=== PATIENT | female | born 1955 | race Caucasian/White ===

== ENCOUNTER 2017-09-05 08:45 | Inpatient (IN) | payer MEDICARE, OTHER ==
[2017-09-05 09:38] LABS: ADD MAN DIFF? NO
[2017-09-05 09:40] LABS: WHITE BLOOD COUNT 8.6 10^3/ul (4.8-10.8)
[2017-09-05 09:40] LABS: BASOPHILS % 0.4 % (0.0-2.0); EOSINOPHILS # 0.1 10^3/ul (0.0-0.5); EOSINOPHILS % 1.3 % (0.0-7.0); HEMATOCRIT 32.9 % (37.0-47.0); HEMOGLOBIN 10.2 g/dl (12.0-16.0); LYMPHOCYTES # 3.3 10^3/ul (0.8-2.9); LYMPHOCYTES % 38.1 % (15.0-51.0); MEAN CORPUSCULAR HEMOGLOBIN 25.5 pg (29.0-33.0); MEAN CORPUSCULAR VOLUME 82.3 fl (82.0-101.0); MEAN PLATELET VOLUME 9.3 fl (7.4-10.4); MONOCYTE # 0.7 10^3/ul (0.3-0.9); MONOCYTES % 8.4 % (0.0-11.0); NEUTROPHIL # 4.4 10^3/ul (1.6-7.5); NEUTROPHILS % 51.6 % (39.0-77.0); PLATELET COUNT 368 10^3/UL (140-415); RED CELL DISTRIBUTION WIDTH 16.3 % (11.5-14.5)
[2017-09-05 09:57] LABS: ALANINE AMINOTRANSFERASE 29 IU/L (13-69); ALBUMIN 3.5 g/dl (3.3-4.9); ALKALINE PHOSPHATASE 109 IU/L (42-121); ANION GAP 10 (8-16); ASPARTATE AMINO TRANSFERASE 12 IU/L (15-46); BILIRUBIN,INDIRECT 0.5 mg/dl (0-1.1); BILIRUBIN,TOTAL 0.5 mg/dl (0.2-1.3); BLOOD UREA NITROGEN 19 mg/dl (7-20); CALCIUM 8.6 mg/dl (8.4-10.2); CARBON DIOXIDE 29 mmol/L (21-31); CHLORIDE 109 mmol/L (97-110); CREATININE 0.74 mg/dl (0.44-1.00); GLUCOSE 94 mg/dl (70-220); POTASSIUM 3.8 mmol/L (3.5-5.1); SODIUM 144 mmol/L (135-144); TOTAL PROTEIN 6.4 g/dl (6.1-8.1)
[2017-09-05 10:12] LABS: TROPONIN-I < 0.012 ng/ml (0.000-0.120)
[2017-09-05 10:15] LABS: INR 0.99; PROTIME 13.2 Sec (11.9-14.9)
[2017-09-05 10:16] LABS: PARTIAL THROMBOPLASTIN TIME 27.3 Sec (25.0-35.0)
[2017-09-05] MEDS ORDERED: ONDANSETRON 4 MG INJ IV ×2 (11:00→17:30)
[2017-09-05] MEDS ORDERED: ACETAMINOPHEN 325 MG TAB PO (11:00)
[2017-09-05] MEDS: PANTOPRAZOLE 40 MG INJ IV (11:02)
[2017-09-05] MEDS ORDERED: hydrALAzine 20 MG INJ IV (17:30)
[2017-09-05] MEDS ORDERED: NACL 0.9% 3 ML SYG IV (17:30)
[2017-09-05] MEDS ORDERED: morphine 2 MG INJ IV (17:30)
[2017-09-05] MEDS: BISACODYL (EC) 5 MG TAB PO (18:40)
[2017-09-05] MEDS: 1/2 NS + KCL 20 MEQ 1,000 ML IV (18:40)
[2017-09-05] MEDS: POLYETHYLENE GLYCOL 3350 119 GM POWDER PO (18:40)
[2017-09-05] MEDS: MAGNESIUM CITRATE 300 ML BTL PO (22:39)
[2017-09-05] MEDS: ALPRAZOLAM 0.5 MG TAB PO (22:46)
[2017-09-05 23:48] LABS: HEMATOCRIT 32.8 % (37.0-47.0)
[2017-09-06] MEDS: PRAMOXINE/HC 10 GM RECT FOAM PR ×4 (01:41→20:42)
[2017-09-06] MEDS ORDERED: POLYETHYLENE GLYCOL 17 GM PACKET (05:04)
[2017-09-06] MEDS: PANTOPRAZOLE 40 MG INJ IV (05:13)
[2017-09-06 06:02] LABS: ADD MAN DIFF? NO
[2017-09-06 06:08] LABS: BASOPHILS % 0.4 % (0.0-2.0); EOSINOPHILS # 0.1 10^3/ul (0.0-0.5); EOSINOPHILS % 1.4 % (0.0-7.0); HEMOGLOBIN 9.3 g/dl (12.0-16.0); LYMPHOCYTES # 3.1 10^3/ul (0.8-2.9); LYMPHOCYTES % 44.9 % (15.0-51.0); MEAN CORPUSCULAR HEMOGLOBIN 25.2 pg (29.0-33.0); MEAN PLATELET VOLUME 9.9 fl (7.4-10.4); MONOCYTE # 0.5 10^3/ul (0.3-0.9); MONOCYTES % 7.5 % (0.0-11.0); NEUTROPHIL # 3.2 10^3/ul (1.6-7.5); NEUTROPHILS % 45.5 % (39.0-77.0); PLATELET COUNT 357 10^3/UL (140-415); RED BLOOD COUNT 3.69 10^6/ul (4.20-5.40); RED CELL DISTRIBUTION WIDTH 16.7 % (11.5-14.5)
[2017-09-06] MEDS: POLYETHYLENE GLYCOL 3350 119 GM POWDER PO (06:38)
[2017-09-06 06:39] LABS: ANION GAP 9 (8-16); BLOOD UREA NITROGEN 11 mg/dl (7-20); CALCIUM 8.5 mg/dl (8.4-10.2); CARBON DIOXIDE 32 mmol/L (21-31); CHLORIDE 111 mmol/L (97-110); CREATININE 0.68 mg/dl (0.44-1.00); GLUCOSE 98 mg/dl (70-220); MAGNESIUM 2.6 mg/dl (1.7-2.5); PHOSPHORUS 3.5 mg/dl (2.5-4.9); POTASSIUM 4.2 mmol/L (3.5-5.1); SODIUM 148 mmol/L (135-144)
[2017-09-06 07:16] LABS: HEMOGLOBIN A1C 5.6 % (0-5.9)
[2017-09-06] MEDS: BISACODYL (EC) 5 MG TAB PO (08:41)
[2017-09-06] MEDS: 1/2 NS + KCL 20 MEQ 1,000 ML IV ×2 (08:43→21:46)
[2017-09-06 14:22] LABS: HEMATOCRIT 31.1 % (37.0-47.0); HEMOGLOBIN 9.3 g/dl (12.0-16.0)
[2017-09-06] MEDS ORDERED: FENTAnyl 50 MCG/ML VIAL (17:39)
[2017-09-06] MEDS ORDERED: MIDAZOLAM 1 MG/ML 2 ML INJ (17:39)
[2017-09-06] MEDS ORDERED: PROPOFOL 20 ML (17:39)
[2017-09-06] MEDS ORDERED: ETOMIDATE 20 MG INJ (17:40)
[2017-09-06] MEDS ORDERED: EPHEDrine SULFATE 50 MG/5 ML SYG (18:02)
[2017-09-06] MEDS: ALPRAZOLAM 0.5 MG TAB PO (20:42)
[2017-09-07] MEDS: PANTOPRAZOLE 40 MG INJ IV (05:43)
[2017-09-07] MEDS: 1/2 NS + KCL 20 MEQ 1,000 ML IV (05:51)
[2017-09-07] MEDS ORDERED: BARIUM SULF 2% 450 ML BTL (BERRY SMOOTHIE) PO (08:30)
[2017-09-07] MEDS: PRAMOXINE/HC 10 GM RECT FOAM PR ×3 (10:30→21:18)
[2017-09-07] MEDS: IOHEXOL 14.3 MG(I)/ML (ADULT) BTL PO (13:07)
[2017-09-07] MEDS ORDERED: IOHEXOL 300MG/ML 150 ML BTL (15:23)
[2017-09-07] MEDS ORDERED: SOD CHLORIDE 0.9% 100 ML (15:23)
[2017-09-07] MEDS: NICOTINE (21 MG/24 HR) PATCH TRANSDERM (18:07)
[2017-09-07] MEDS: ALPRAZOLAM 0.5 MG TAB PO (21:18)
[2017-09-08] MEDS: 1/2 NS + KCL 20 MEQ 1,000 ML IV (00:48)
[2017-09-08] MEDS: ACETAMINOPHEN 1000MG/100ML IV 100 ML IVPB (05:16)
[2017-09-08] MEDS: PANTOPRAZOLE 40 MG INJ IV (05:16)
[2017-09-08] MEDS: NICOTINE (21 MG/24 HR) PATCH TRANSDERM (09:33)
[2017-09-08] MEDS: PRAMOXINE/HC 10 GM RECT FOAM PR ×3 (09:35→22:03)
[2017-09-08] MEDS: ATORVASTATIN 40 MG TAB PO (22:02)
[2017-09-08] MEDS: SALMETEROL/FLUTICASONE 250/50 INHA INH (22:02)
[2017-09-08] MEDS: ALPRAZOLAM 0.5 MG TAB PO (22:02)
[2017-09-09] MEDS: LEVOTHYROXINE 100 MCG TAB PO (06:25)
[2017-09-09] MEDS: SALMETEROL/FLUTICASONE 250/50 INHA INH ×2 (08:58→21:00)
[2017-09-09] MEDS: SERTRALINE 100 MG TAB PO (08:58)
[2017-09-09] MEDS: NICOTINE (21 MG/24 HR) PATCH TRANSDERM ×2 (08:59→22:37)
[2017-09-09] MEDS: PRAMOXINE/HC 10 GM RECT FOAM PR ×3 (09:00→22:39)
[2017-09-09 16:07] LABS: IRON 27 ug/dl (35-150)
[2017-09-09 16:17] LABS: % IRON SATURATION 6 % SAT (22-52); TOTAL IRON BINDING CAPACITY 464 ug/dl (241-421)
[2017-09-09 16:38] LABS: FERRITIN 7.8 ng/ml (11.1-264.0)
[2017-09-09] MEDS: ATORVASTATIN 40 MG TAB PO (22:38)
[2017-09-09] MEDS: ISOSORBIDE DINITRATE 20 MG TAB PO (22:38)
[2017-09-09] MEDS: ALPRAZOLAM 0.5 MG TAB PO (22:39)
[2017-09-10] MEDS: LEVOTHYROXINE 100 MCG TAB PO (06:33)
[2017-09-10 06:53] LABS: ADD MAN DIFF? NO
[2017-09-10 07:01] LABS: WHITE BLOOD COUNT 7.4 10^3/ul (4.8-10.8)
[2017-09-10 07:01] LABS: BASOPHILS % 0.4 % (0.0-2.0); EOSINOPHILS # 0.1 10^3/ul (0.0-0.5); EOSINOPHILS % 1.3 % (0.0-7.0); HEMATOCRIT 30.2 % (37.0-47.0); HEMOGLOBIN 8.9 g/dl (12.0-16.0); LYMPHOCYTES % 40.1 % (15.0-51.0); MEAN CORPUSCULAR HEMOGLOBIN 24.5 pg (29.0-33.0); MEAN CORPUSCULAR HGB CONC 29.5 g/dl (32.0-37.0); MEAN CORPUSCULAR VOLUME 83.2 fl (82.0-101.0); MEAN PLATELET VOLUME 10.1 fl (7.4-10.4); MONOCYTE # 0.6 10^3/ul (0.3-0.9); MONOCYTES % 7.4 % (0.0-11.0); NEUTROPHIL # 3.8 10^3/ul (1.6-7.5); NEUTROPHILS % 50.7 % (39.0-77.0); PLATELET COUNT 383 10^3/UL (140-415); RED BLOOD COUNT 3.63 10^6/ul (4.20-5.40); RED CELL DISTRIBUTION WIDTH 16.1 % (11.5-14.5)
[2017-09-10 07:29] LABS: ANION GAP 13 (8-16); BLOOD UREA NITROGEN 21 mg/dl (7-20); CALCIUM 8.5 mg/dl (8.4-10.2); CARBON DIOXIDE 27 mmol/L (21-31); CHLORIDE 113 mmol/L (97-110); CREATININE 0.67 mg/dl (0.44-1.00); GLUCOSE 96 mg/dl (70-220); SODIUM 149 mmol/L (135-144)
[2017-09-10] MEDS: SALMETEROL/FLUTICASONE 250/50 INHA INH ×2 (09:00→21:00)
[2017-09-10] MEDS: ISOSORBIDE DINITRATE 20 MG TAB PO ×3 (09:03→22:22)
[2017-09-10] MEDS: SPIRONOLACTONE 25 MG TAB PO (09:03)
[2017-09-10] MEDS: SERTRALINE 100 MG TAB PO (09:03)
[2017-09-10] MEDS: NICOTINE (21 MG/24 HR) PATCH TRANSDERM (09:03)
[2017-09-10] MEDS: PRAMOXINE/HC 10 GM RECT FOAM PR ×3 (09:09→22:22)
[2017-09-10] MEDS: morphine LIQ (10 MG/5 ML) CUP PO (11:33)
[2017-09-10] MEDS: PEG/ELECTROLYTES 4L BTL PO (16:07)
[2017-09-10 17:47] LABS: INR 0.94; PROTIME 12.7 Sec (11.9-14.9)
[2017-09-10] MEDS: ATORVASTATIN 40 MG TAB PO (22:22)
[2017-09-10] MEDS: ALPRAZOLAM 0.5 MG TAB PO (22:22)
[2017-09-11] MEDS: BUPIVACAINE 0.5%/EPI (SDV) 30 ML INJ
[2017-09-11 06:15] LABS: ADD MAN DIFF? NO
[2017-09-11 06:18] LABS: BASOPHILS % 0.5 % (0.0-2.0); EOSINOPHILS # 0.1 10^3/ul (0.0-0.5); EOSINOPHILS % 1.6 % (0.0-7.0); HEMATOCRIT 29.3 % (37.0-47.0); HEMOGLOBIN 8.8 g/dl (12.0-16.0); LYMPHOCYTES % 41.3 % (15.0-51.0); MEAN CORPUSCULAR HEMOGLOBIN 25.1 pg (29.0-33.0); MEAN CORPUSCULAR VOLUME 83.5 fl (82.0-101.0); MONOCYTE # 0.6 10^3/ul (0.3-0.9); MONOCYTES % 7.8 % (0.0-11.0); NEUTROPHIL # 3.5 10^3/ul (1.6-7.5); NEUTROPHILS % 48.7 % (39.0-77.0); PLATELET COUNT 407 10^3/UL (140-415); RED BLOOD COUNT 3.51 10^6/ul (4.20-5.40); RED CELL DISTRIBUTION WIDTH 16.1 % (11.5-14.5)
[2017-09-11 06:18] LABS: WHITE BLOOD COUNT 7.3 10^3/ul (4.8-10.8)
[2017-09-11 06:54] LABS: ANION GAP 13 (8-16); BLOOD UREA NITROGEN 15 mg/dl (7-20); CALCIUM 8.2 mg/dl (8.4-10.2); CARBON DIOXIDE 28 mmol/L (21-31); CHLORIDE 111 mmol/L (97-110); CREATININE 0.65 mg/dl (0.44-1.00); GLUCOSE 87 mg/dl (70-220); POTASSIUM 4.1 mmol/L (3.5-5.1); SODIUM 148 mmol/L (135-144)
[2017-09-11] MEDS ORDERED: DEXAMETHASONE 4 MG/ML 1 ML INJ (07:00)
[2017-09-11] MEDS ORDERED: CEFAZOLIN 1 GM INJ (07:00)
[2017-09-11] MEDS ORDERED: metroNIDAZOLE 500 MG/100 ML NS IVPB (07:00)
[2017-09-11] MEDS ORDERED: ONDANSETRON 4 MG INJ (07:00)
[2017-09-11] MEDS ORDERED: ETOMIDATE 20 MG INJ (07:00)
[2017-09-11] MEDS: PRAMOXINE/HC 10 GM RECT FOAM PR ×3 (09:00→20:53)
[2017-09-11] MEDS: SALMETEROL/FLUTICASONE 250/50 INHA INH ×2 (09:00→21:54)
[2017-09-11] MEDS: LEVOTHYROXINE 100 MCG TAB PO (10:03)
[2017-09-11] MEDS: SERTRALINE 100 MG TAB PO (10:04)
[2017-09-11] MEDS: SPIRONOLACTONE 25 MG TAB PO (10:04)
[2017-09-11] MEDS: NICOTINE (21 MG/24 HR) PATCH TRANSDERM (10:04)
[2017-09-11] MEDS: ISOSORBIDE DINITRATE 20 MG TAB PO ×3 (10:04→20:52)
[2017-09-11] MEDS ORDERED: FENTAnyl 50 MCG/ML VIAL ×3 (13:17→14:45)
[2017-09-11] MEDS ORDERED: MIDAZOLAM 1 MG/ML 2 ML INJ ×2 (13:17→14:08)
[2017-09-11] MEDS ORDERED: PROPOFOL 20 ML (13:19)
[2017-09-11] MEDS ORDERED: SUCCINYLCHOLINE CHLORIDE 100 MG/5 ML SYG IV (13:20)
[2017-09-11] MEDS ORDERED: ROCURONIUM 50 MG INJ (13:20)
[2017-09-11] MEDS ORDERED: EPHEDrine SULFATE 50 MG/5 ML SYG (13:21)
[2017-09-11] MEDS ORDERED: ACETAMINOPHEN 1000MG/100ML IV 100 ML (13:22)
[2017-09-11] MEDS ORDERED: LIDOCAINE 1% (MPF) 30 ML INJ (14:23)
[2017-09-11] MEDS ORDERED: METOPROLOL 5 MG INJ (14:23)
[2017-09-11] MEDS ORDERED: hydrALAzine 20 MG INJ (14:25)
[2017-09-11] MEDS ORDERED: HYDROmorphONE 2 MG/ML SYG (14:45)
[2017-09-11 16:27] LABS: IMMEDIATE SPIN CROSSMATCH 1 2
[2017-09-11] MEDS ORDERED: METOCLOPRAMIDE 10 MG INJ (17:45)
[2017-09-11] MEDS ORDERED: SUGAMMADEX SODIUM 200 MG/2 ML VIAL IV (17:45)
[2017-09-11] MEDS ORDERED: DIPHENHYDRAMINE 50 MG INJ IV (18:30)
[2017-09-11] MEDS ORDERED: ONDANSETRON 4 MG INJ IV (18:30)
[2017-09-11] MEDS ORDERED: HYDROmorphONE 0.5 MG/0.5 ML SYG IV (18:30)
[2017-09-11] MEDS ORDERED: hydrALAzine 20 MG INJ IV (18:30)
[2017-09-11] MEDS ORDERED: KETOROLAC 30 MG INJ IV (18:30)
[2017-09-11] MEDS ORDERED: FENTAnyl 50 MCG/ML VIAL IV ×2 (18:30)
[2017-09-11] MEDS ORDERED: MEPERIDINE 25 MG INJ IV (18:30)
[2017-09-11] MEDS ORDERED: CEFAZOLIN 3 GM in SOD CHLORIDE 0.9% 100 ML IVPB (18:30)
[2017-09-11] MEDS ORDERED: HYDROCODONE/APAP (5/325) TAB PO (18:30)
[2017-09-11] MEDS ORDERED: HYDROmorphONE (0.2 MG/ML) 10ML SYG IV ×2 (18:30)
[2017-09-11] MEDS: IPRATROPIUM (NEB) 0.5 MG/2.5 ML AMP HHN (18:34)
[2017-09-11 18:55] LABS: ADD UMIC YES; UR ASCORBIC ACID NEGATIVE (NEGATIVE); UR BILIRUBIN (Dip) NEGATIVE (NEGATIVE); UR BLOOD (Dip) 1+ mg/dL (NEGATIVE); UR CLARITY CLEAR (CLEAR); UR COLOR YELLOW (YELLOW); UR GLUCOSE (Dip) NEGATIVE (NEGATIVE); UR KETONES (Dip) NEGATIVE (NEGATIVE); UR LEUKOCYTE ESTERASE (Dip) NEGATIVE Leu/ul (NEGATIVE); UR MUCUS FEW /HPF (NONE SEEN); UR NITRITE (Dip) NEGATIVE (NEGATIVE); UR RBC 14 /HPF (0-5); UR SPECIFIC GRAVITY (Dip) 1.016 (1.003-1.030); UR TOTAL PROTEIN (Dip) NEGATIVE (NEGATIVE); UR UROBILINOGEN (Dip) NEGATIVE (NEGATIVE); UR WBC 2 /HPF (0-5)
[2017-09-11] MEDS: HYDROmorphONE (0.2 MG/ML) 10ML SYG IV (19:05)
[2017-09-11] MEDS: SOD FERRIC GLUC COMPLX 125 MG in SOD CHLORIDE 0.9% 100 ML IVPB (20:30)
[2017-09-11] MEDS: ATORVASTATIN 40 MG TAB PO (20:52)
[2017-09-11] MEDS: ALPRAZOLAM 0.5 MG TAB PO (20:53)
[2017-09-11] MEDS: CEFAZOLIN 2 GM/50 ML (PMX) 50 ML IVPB (21:54)
[2017-09-11] MEDS: metroNIDAZOLE 500 MG/NS (PMX) 100 ML IVPB (22:43)
[2017-09-12] MEDS: DEXTROSE 5%-0.45% NACL 1,000 ML IV ×2 (00:01→21:53)
[2017-09-12] MEDS: ACETAMINOPHEN 1000MG/100ML IV 100 ML IVPB ×5 (00:01→23:26)
[2017-09-12] MEDS: ALBUTEROL/IPRATROPIUM (NEB) 3 ML AMP HHN (02:08)
[2017-09-12] MEDS: CEFAZOLIN 2 GM/50 ML (PMX) 50 ML IVPB (04:55)
[2017-09-12] MEDS: metroNIDAZOLE 500 MG/NS (PMX) 100 ML IVPB ×2 (05:43→10:31)
[2017-09-12 06:09] LABS: HEMATOCRIT 33.6 % (37.0-47.0); HEMOGLOBIN 10.3 g/dl (12.0-16.0); MEAN CORPUSCULAR HEMOGLOBIN 25.6 pg (29.0-33.0); MEAN CORPUSCULAR HGB CONC 30.7 g/dl (32.0-37.0); MEAN CORPUSCULAR VOLUME 83.6 fl (82.0-101.0); MEAN PLATELET VOLUME 9.9 fl (7.4-10.4); PLATELET COUNT 366 10^3/UL (140-415); RED BLOOD COUNT 4.02 10^6/ul (4.20-5.40); RED CELL DISTRIBUTION WIDTH 15.9 % (11.5-14.5)
[2017-09-12 06:09] LABS: WHITE BLOOD COUNT 16.7 10^3/ul (4.8-10.8)
[2017-09-12 06:20] LABS: ADD MAN DIFF? YES; POSITIVE DIFF @See below
[2017-09-12 06:34] LABS: ANION GAP 11 (8-16); BLOOD UREA NITROGEN 11 mg/dl (7-20); CALCIUM 8.4 mg/dl (8.4-10.2); CARBON DIOXIDE 27 mmol/L (21-31); CHLORIDE 112 mmol/L (97-110); CREATININE 0.68 mg/dl (0.44-1.00); GLUCOSE 146 mg/dl (70-220); POTASSIUM 3.7 mmol/L (3.5-5.1); SODIUM 146 mmol/L (135-144)
[2017-09-12 07:15] LABS: ANISOCYTOSIS 2+ (0-0); BAND NEUTROPHILS #M 1.6 10^3/ul (0.0-0.6); BAND NEUTROPHILS % (M) 10 % (0-4); GIANT THROMBO% (M) 1 % (0-0); HYPOCHROMASIA 1+ (0-0); LYMPHOCYTES #M 1.1 10^3/ul (0.8-2.9); LYMPHOCYTES % (M) 7 % (15-51); MICROCYTOSIS 2+ (0-0); MONOCYTE #M 0.5 10^3/ul (0.3-0.9); MONOCYTES % (M) 3 % (0-11); PLATELET ESTIMATE NORMAL; POLYCHROMASIA 1+ (0-0); SEG NEUT #M 13.6 10^3/ul (1.6-7.5); SEGMENTED NEUTROPHILS (M) % 80 % (39-77); SMUDGE%M 4 % (0-0)
[2017-09-12] MEDS: morphine LIQ (10 MG/5 ML) CUP PO ×2 (08:00→15:02)
[2017-09-12] MEDS: LEVOTHYROXINE 100 MCG TAB PO (08:01)
[2017-09-12] MEDS: ISOSORBIDE DINITRATE 20 MG TAB PO ×3 (08:01→21:52)
[2017-09-12] MEDS: NICOTINE (21 MG/24 HR) PATCH TRANSDERM (08:02)
[2017-09-12] MEDS: SERTRALINE 100 MG TAB PO (08:02)
[2017-09-12] MEDS: PRAMOXINE/HC 10 GM RECT FOAM PR ×3 (08:03→21:00)
[2017-09-12] MEDS: SALMETEROL/FLUTICASONE 250/50 INHA INH ×2 (08:05→21:00)
[2017-09-12] MEDS: SPIRONOLACTONE 25 MG TAB PO (08:06)
[2017-09-12] MEDS: CEFEPIME 1GM/50 ML (PMX) 50 ML IVPB ×2 (12:54→22:06)
[2017-09-12] MEDS: LEVOFLOXACIN 500MG/D5W (PMX) 100 ML IVPB (13:35)
[2017-09-12 16:10] LABS: TROPONIN-I < 0.012 ng/ml (0.000-0.120)
[2017-09-12] MEDS: SOD FERRIC GLUC COMPLX 125 MG in SOD CHLORIDE 0.9% 100 ML IVPB (16:44)
[2017-09-12] MEDS: ALPRAZOLAM 0.5 MG TAB PO (21:52)
[2017-09-12] MEDS: ATORVASTATIN 40 MG TAB PO (21:52)
[2017-09-13] MEDS: ALTEPLASE (CATHFLO) 2 MG INJ CATHETER ×2 (03:44→11:39)
[2017-09-13] MEDS: ACETAMINOPHEN 1000MG/100ML IV 100 ML IVPB ×4 (05:13→23:01)
[2017-09-13] MEDS: DEXTROSE 5%-0.45% NACL 1,000 ML IV (06:02)
[2017-09-13] MEDS: LEVOTHYROXINE 100 MCG TAB PO (06:02)
[2017-09-13 06:51] LABS: ADD MAN DIFF? NO; BASOPHILS % 0.1 % (0.0-2.0); HEMATOCRIT 29.6 % (37.0-47.0); HEMOGLOBIN 9.1 g/dl (12.0-16.0); LYMPHOCYTES # 1.6 10^3/ul (0.8-2.9); LYMPHOCYTES % 13.2 % (15.0-51.0); MEAN CORPUSCULAR HEMOGLOBIN 25.4 pg (29.0-33.0); MEAN CORPUSCULAR HGB CONC 30.7 g/dl (32.0-37.0); MEAN CORPUSCULAR VOLUME 82.7 fl (82.0-101.0); MEAN PLATELET VOLUME 10.2 fl (7.4-10.4); MONOCYTE # 0.8 10^3/ul (0.3-0.9); MONOCYTES % 6.5 % (0.0-11.0); NEUTROPHILS % 79.7 % (39.0-77.0); PLATELET COUNT 338 10^3/UL (140-415); RED BLOOD COUNT 3.58 10^6/ul (4.20-5.40); RED CELL DISTRIBUTION WIDTH 16.2 % (11.5-14.5)
[2017-09-13 06:51] LABS: WHITE BLOOD COUNT 12.5 10^3/ul (4.8-10.8)
[2017-09-13 07:32] LABS: ANION GAP 9 (8-16); BLOOD UREA NITROGEN 9 mg/dl (7-20); CALCIUM 8.4 mg/dl (8.4-10.2); CARBON DIOXIDE 27 mmol/L (21-31); CHLORIDE 112 mmol/L (97-110); CREATININE 0.62 mg/dl (0.44-1.00); GLUCOSE 110 mg/dl (70-220); POTASSIUM 3.4 mmol/L (3.5-5.1); SODIUM 145 mmol/L (135-144)
[2017-09-13] MEDS: PRAMOXINE/HC 10 GM RECT FOAM PR ×3 (09:00→21:00)
[2017-09-13] MEDS: SPIRONOLACTONE 25 MG TAB PO (09:08)
[2017-09-13] MEDS: CEFEPIME 1GM/50 ML (PMX) 50 ML IVPB ×2 (09:08→20:16)
[2017-09-13] MEDS: SALMETEROL/FLUTICASONE 250/50 INHA INH ×2 (09:08→20:16)
[2017-09-13] MEDS: SERTRALINE 100 MG TAB PO (09:08)
[2017-09-13] MEDS: ISOSORBIDE DINITRATE 20 MG TAB PO ×3 (09:08→20:17)
[2017-09-13] MEDS: NICOTINE (21 MG/24 HR) PATCH TRANSDERM (09:08)
[2017-09-13] MEDS: LEVOFLOXACIN 500MG/D5W (PMX) 100 ML IVPB (11:39)
[2017-09-13] MEDS: morphine LIQ (10 MG/5 ML) CUP PO (11:40)
[2017-09-13] MEDS: POTASSIUM CHLORIDE (SR) 20 MEQ TAB PO (15:23)
[2017-09-13] MEDS: SOD FERRIC GLUC COMPLX 125 MG in SOD CHLORIDE 0.9% 100 ML IVPB (17:38)
[2017-09-13] MEDS: ALPRAZOLAM 0.5 MG TAB PO (20:16)
[2017-09-13] MEDS: ATORVASTATIN 40 MG TAB PO (20:17)
[2017-09-14] MEDS: ACETAMINOPHEN 1000MG/100ML IV 100 ML IVPB ×4 (05:36→23:21)
[2017-09-14 06:04] LABS: ADD MAN DIFF? NO
[2017-09-14 06:17] LABS: WHITE BLOOD COUNT 11.8 10^3/ul (4.8-10.8)
[2017-09-14 06:17] LABS: BASOPHILS % 0.2 % (0.0-2.0); HEMATOCRIT 30.9 % (37.0-47.0); HEMOGLOBIN 9.5 g/dl (12.0-16.0); LYMPHOCYTES # 1.7 10^3/ul (0.8-2.9); LYMPHOCYTES % 14.6 % (15.0-51.0); MEAN CORPUSCULAR HEMOGLOBIN 25.9 pg (29.0-33.0); MEAN CORPUSCULAR HGB CONC 30.7 g/dl (32.0-37.0); MEAN CORPUSCULAR VOLUME 84.2 fl (82.0-101.0); MEAN PLATELET VOLUME 10.2 fl (7.4-10.4); MONOCYTE # 0.9 10^3/ul (0.3-0.9); MONOCYTES % 7.4 % (0.0-11.0); NEUTROPHIL # 9.1 10^3/ul (1.6-7.5); NEUTROPHILS % 77.3 % (39.0-77.0); PLATELET COUNT 348 10^3/UL (140-415); RED BLOOD COUNT 3.67 10^6/ul (4.20-5.40); RED CELL DISTRIBUTION WIDTH 16.6 % (11.5-14.5)
[2017-09-14 06:34] LABS: ANION GAP 12 (8-16); BLOOD UREA NITROGEN 6 mg/dl (7-20); CALCIUM 8.7 mg/dl (8.4-10.2); CARBON DIOXIDE 26 mmol/L (21-31); CHLORIDE 114 mmol/L (97-110); CREATININE 0.56 mg/dl (0.44-1.00); GLUCOSE 124 mg/dl (70-220); SODIUM 148 mmol/L (135-144)
[2017-09-14] MEDS: ALTEPLASE (CATHFLO) 2 MG INJ CATHETER ×2 (06:37)
[2017-09-14] MEDS: LEVOTHYROXINE 100 MCG TAB PO (06:45)
[2017-09-14] MEDS: PRAMOXINE/HC 10 GM RECT FOAM PR ×3 (09:20→21:00)
[2017-09-14] MEDS: SERTRALINE 100 MG TAB PO (09:21)
[2017-09-14] MEDS: SPIRONOLACTONE 25 MG TAB PO (09:21)
[2017-09-14] MEDS: SALMETEROL/FLUTICASONE 250/50 INHA INH ×2 (09:21→21:00)
[2017-09-14] MEDS: NICOTINE (21 MG/24 HR) PATCH TRANSDERM (09:22)
[2017-09-14] MEDS: CEFEPIME 1GM/50 ML (PMX) 50 ML IVPB ×2 (09:25→21:27)
[2017-09-14] MEDS: ISOSORBIDE DINITRATE 20 MG TAB PO ×3 (09:26→21:27)
[2017-09-14] MEDS: DEXTROSE 5%-0.45% NACL 1,000 ML IV (10:44)
[2017-09-14] MEDS: LEVOFLOXACIN 500MG/D5W (PMX) 100 ML IVPB (12:17)
[2017-09-14] MEDS: DEXTROSE 5% 1,000 ML IV (15:09)
[2017-09-14] MEDS: SOD FERRIC GLUC COMPLX 125 MG in SOD CHLORIDE 0.9% 100 ML IVPB (16:36)
[2017-09-14] MEDS: ATORVASTATIN 40 MG TAB PO (21:27)
[2017-09-14] MEDS: ALPRAZOLAM 0.5 MG TAB PO (21:27)
[2017-09-15] MEDS: ACETAMINOPHEN 1000MG/100ML IV 100 ML IVPB ×4 (05:43→23:15)
[2017-09-15] MEDS: DEXTROSE 5% 1,000 ML IV (05:46)
[2017-09-15] MEDS: LEVOTHYROXINE 100 MCG TAB PO (06:12)
[2017-09-15 06:25] LABS: ADD MAN DIFF? NO
[2017-09-15 06:30] LABS: BASOPHILS % 0.2 % (0.0-2.0); EOSINOPHILS % 0.2 % (0.0-7.0); HEMATOCRIT 30.7 % (37.0-47.0); HEMOGLOBIN 9.4 g/dl (12.0-16.0); LYMPHOCYTES # 2.1 10^3/ul (0.8-2.9); MEAN CORPUSCULAR HEMOGLOBIN 25.7 pg (29.0-33.0); MEAN CORPUSCULAR HGB CONC 30.6 g/dl (32.0-37.0); MEAN CORPUSCULAR VOLUME 83.9 fl (82.0-101.0); MEAN PLATELET VOLUME 10.2 fl (7.4-10.4); MONOCYTE # 0.7 10^3/ul (0.3-0.9); MONOCYTES % 7.8 % (0.0-11.0); NEUTROPHIL # 6.5 10^3/ul (1.6-7.5); NEUTROPHILS % 69.1 % (39.0-77.0); PLATELET COUNT 362 10^3/UL (140-415); RED BLOOD COUNT 3.66 10^6/ul (4.20-5.40); RED CELL DISTRIBUTION WIDTH 16.7 % (11.5-14.5)
[2017-09-15 06:30] LABS: WHITE BLOOD COUNT 9.5 10^3/ul (4.8-10.8)
[2017-09-15 07:18] LABS: MAGNESIUM 2.1 mg/dl (1.7-2.5)
[2017-09-15 07:18] LABS: PHOSPHORUS 3.1 mg/dl (2.5-4.9)
[2017-09-15 07:30] LABS: ANION GAP 10 (8-16); BLOOD UREA NITROGEN 5 mg/dl (7-20); CALCIUM 8.7 mg/dl (8.4-10.2); CARBON DIOXIDE 29 mmol/L (21-31); CHLORIDE 114 mmol/L (97-110); CREATININE 0.57 mg/dl (0.44-1.00); GLUCOSE 116 mg/dl (70-220); POTASSIUM 3.3 mmol/L (3.5-5.1); SODIUM 150 mmol/L (135-144)
[2017-09-15] MEDS: PRAMOXINE/HC 10 GM RECT FOAM PR ×3 (09:00→21:00)
[2017-09-15] MEDS: SALMETEROL/FLUTICASONE 250/50 INHA INH ×2 (09:00→21:00)
[2017-09-15] MEDS: CEFEPIME 1GM/50 ML (PMX) 50 ML IVPB ×2 (11:22→22:01)
[2017-09-15] MEDS: SPIRONOLACTONE 25 MG TAB PO (11:23)
[2017-09-15] MEDS: SERTRALINE 100 MG TAB PO (11:23)
[2017-09-15] MEDS: NICOTINE (21 MG/24 HR) PATCH TRANSDERM (11:23)
[2017-09-15] MEDS: ISOSORBIDE DINITRATE 20 MG TAB PO ×3 (11:24→21:14)
[2017-09-15] MEDS: LEVOFLOXACIN 500MG/D5W (PMX) 100 ML IVPB (13:18)
[2017-09-15] MEDS: POTASSIUM CHLORIDE (SR) 20 MEQ TAB PO (15:20)
[2017-09-15] MEDS: SOD FERRIC GLUC COMPLX 125 MG in SOD CHLORIDE 0.9% 100 ML IVPB (18:36)
[2017-09-15] MEDS: ATORVASTATIN 40 MG TAB PO (21:13)
[2017-09-15] MEDS: ALPRAZOLAM 0.5 MG TAB PO (23:15)
[2017-09-16] MEDS: morphine LIQ (10 MG/5 ML) CUP PO (00:54)
[2017-09-16] MEDS: ACETAMINOPHEN 1000MG/100ML IV 100 ML IVPB (04:27)
[2017-09-16 06:00] LABS: ADD MAN DIFF? NO
[2017-09-16 06:11] LABS: BASOPHILS % 0.2 % (0.0-2.0); EOSINOPHILS % 0.3 % (0.0-7.0); HEMATOCRIT 31.8 % (37.0-47.0); HEMOGLOBIN 9.7 g/dl (12.0-16.0); LYMPHOCYTES # 2.3 10^3/ul (0.8-2.9); LYMPHOCYTES % 23.8 % (15.0-51.0); MEAN CORPUSCULAR HEMOGLOBIN 25.5 pg (29.0-33.0); MEAN CORPUSCULAR HGB CONC 30.5 g/dl (32.0-37.0); MEAN CORPUSCULAR VOLUME 83.5 fl (82.0-101.0); MEAN PLATELET VOLUME 9.9 fl (7.4-10.4); MONOCYTE # 0.9 10^3/ul (0.3-0.9); MONOCYTES % 9.2 % (0.0-11.0); NEUTROPHIL # 6.3 10^3/ul (1.6-7.5); PLATELET COUNT 348 10^3/UL (140-415); RED BLOOD COUNT 3.81 10^6/ul (4.20-5.40)
[2017-09-16 06:11] LABS: WHITE BLOOD COUNT 9.6 10^3/ul (4.8-10.8)
[2017-09-16] MEDS: LEVOTHYROXINE 100 MCG TAB PO (06:34)
[2017-09-16 07:27] LABS: MAGNESIUM 1.9 mg/dl (1.7-2.5)
[2017-09-16 07:27] LABS: PHOSPHORUS 3.3 mg/dl (2.5-4.9)
[2017-09-16 07:34] LABS: ANION GAP 11 (8-16); BLOOD UREA NITROGEN 8 mg/dl (7-20); CALCIUM 8.5 mg/dl (8.4-10.2); CARBON DIOXIDE 30 mmol/L (21-31); CHLORIDE 112 mmol/L (97-110); CREATININE 0.65 mg/dl (0.44-1.00); GLUCOSE 108 mg/dl (70-220); POTASSIUM 3.5 mmol/L (3.5-5.1); SODIUM 149 mmol/L (135-144)
[2017-09-16] MEDS: PRAMOXINE/HC 10 GM RECT FOAM PR ×3 (09:00→20:55)
[2017-09-16] MEDS: SALMETEROL/FLUTICASONE 250/50 INHA INH ×2 (09:07→20:52)
[2017-09-16] MEDS: NICOTINE (21 MG/24 HR) PATCH TRANSDERM (09:09)
[2017-09-16] MEDS: SERTRALINE 100 MG TAB PO (09:10)
[2017-09-16] MEDS: ISOSORBIDE DINITRATE 20 MG TAB PO ×3 (09:10→20:53)
[2017-09-16] MEDS: FUROSEMIDE 20 MG TAB PO (09:12)
[2017-09-16] MEDS: CEFEPIME 1GM/50 ML (PMX) 50 ML IVPB ×2 (09:12→20:54)
[2017-09-16] MEDS: FERROUS SULFATE (EC) 325 MG TAB PO ×4 (09:12→20:52)
[2017-09-16] MEDS: CHOLECALCIFEROL 1,000 UNIT TAB PO (09:12)
[2017-09-16] MEDS: POTASSIUM CHLORIDE (SR) 10 MEQ TAB PO (09:12)
[2017-09-16] MEDS: DONEPEZIL 5 MG TAB PO (09:26)
[2017-09-16] MEDS: TIOTROPIUM 18 MCG CAPSULE INHA DEV INH (10:26)
[2017-09-16] MEDS: PANTOPRAZOLE (EC) 40 MG TAB PO (10:26)
[2017-09-16] MEDS: ENALAPRIL 20 MG TAB PO (10:26)
[2017-09-16] MEDS: HYDROCODONE/APAP (5/325) TAB PO (18:05)
[2017-09-16] MEDS: ATORVASTATIN 40 MG TAB PO (20:53)
[2017-09-16] MEDS: AMLODIPINE 5 MG TAB GTB (20:54)
[2017-09-16] MEDS: ALPRAZOLAM 0.5 MG TAB PO (22:18)
[2017-09-17] MEDS: HYDROCODONE/APAP (5/325) TAB PO ×3 (01:21→21:36)
[2017-09-17] MEDS: PANTOPRAZOLE (EC) 40 MG TAB PO (06:05)
[2017-09-17] MEDS: LEVOTHYROXINE 100 MCG TAB PO (06:05)
[2017-09-17] MEDS: CEFEPIME 1GM/50 ML (PMX) 50 ML IVPB ×2 (08:28→21:36)
[2017-09-17] MEDS: TIOTROPIUM 18 MCG CAPSULE INHA DEV INH (08:31)
[2017-09-17] MEDS: CHOLECALCIFEROL 1,000 UNIT TAB PO (08:31)
[2017-09-17] MEDS: POTASSIUM CHLORIDE (SR) 10 MEQ TAB PO (08:31)
[2017-09-17] MEDS: FERROUS SULFATE (EC) 325 MG TAB PO ×4 (08:31→21:37)
[2017-09-17] MEDS: SALMETEROL/FLUTICASONE 250/50 INHA INH ×2 (08:31→21:00)
[2017-09-17] MEDS: AMLODIPINE 5 MG TAB GTB ×2 (08:32→21:37)
[2017-09-17] MEDS: ISOSORBIDE DINITRATE 20 MG TAB PO ×3 (08:32→21:38)
[2017-09-17] MEDS: SERTRALINE 100 MG TAB PO (08:32)
[2017-09-17] MEDS: ENALAPRIL 20 MG TAB PO (08:32)
[2017-09-17] MEDS: DONEPEZIL 5 MG TAB PO (08:32)
[2017-09-17] MEDS: FUROSEMIDE 20 MG TAB PO (08:32)
[2017-09-17] MEDS: NICOTINE (21 MG/24 HR) PATCH TRANSDERM (08:33)
[2017-09-17] MEDS: PRAMOXINE/HC 10 GM RECT FOAM PR ×3 (08:35→21:00)
[2017-09-17] MEDS: ATORVASTATIN 40 MG TAB PO (21:37)
[2017-09-17] MEDS: ALPRAZOLAM 0.5 MG TAB PO (23:46)
[2017-09-18 05:38] LABS: ADD MAN DIFF? NO
[2017-09-18 05:42] LABS: WHITE BLOOD COUNT 10.4 10^3/ul (4.8-10.8)
[2017-09-18 05:42] LABS: BASOPHILS % 0.3 % (0.0-2.0); EOSINOPHILS # 0.1 10^3/ul (0.0-0.5); EOSINOPHILS % 1.3 % (0.0-7.0); HEMATOCRIT 34.6 % (37.0-47.0); HEMOGLOBIN 10.4 g/dl (12.0-16.0); LYMPHOCYTES # 2.7 10^3/ul (0.8-2.9); LYMPHOCYTES % 25.6 % (15.0-51.0); MEAN CORPUSCULAR HEMOGLOBIN 25.4 pg (29.0-33.0); MEAN CORPUSCULAR HGB CONC 30.1 g/dl (32.0-37.0); MEAN CORPUSCULAR VOLUME 84.6 fl (82.0-101.0); MEAN PLATELET VOLUME 9.9 fl (7.4-10.4); MONOCYTE # 0.9 10^3/ul (0.3-0.9); MONOCYTES % 8.2 % (0.0-11.0); NEUTROPHIL # 6.7 10^3/ul (1.6-7.5); NEUTROPHILS % 63.9 % (39.0-77.0); PLATELET COUNT 366 10^3/UL (140-415); RED BLOOD COUNT 4.09 10^6/ul (4.20-5.40); RED CELL DISTRIBUTION WIDTH 18.1 % (11.5-14.5)
[2017-09-18 06:03] LABS: ANION GAP 10 (8-16); BLOOD UREA NITROGEN 14 mg/dl (7-20); CALCIUM 8.5 mg/dl (8.4-10.2); CARBON DIOXIDE 34 mmol/L (21-31); CHLORIDE 108 mmol/L (97-110); CREATININE 0.61 mg/dl (0.44-1.00); GLUCOSE 105 mg/dl (70-220); MAGNESIUM 2.1 mg/dl (1.7-2.5); PHOSPHORUS 3.6 mg/dl (2.5-4.9); POTASSIUM 3.9 mmol/L (3.5-5.1); SODIUM 148 mmol/L (135-144)
[2017-09-18] MEDS: PANTOPRAZOLE (EC) 40 MG TAB PO (06:36)
[2017-09-18] MEDS: LEVOTHYROXINE 100 MCG TAB PO (06:36)
[2017-09-18] MEDS: ENALAPRIL 20 MG TAB PO (09:00)
[2017-09-18] MEDS: AMLODIPINE 5 MG TAB GTB ×2 (09:00→22:48)
[2017-09-18] MEDS: ISOSORBIDE DINITRATE 20 MG TAB PO ×3 (09:00→22:47)
[2017-09-18] MEDS: DONEPEZIL 5 MG TAB PO (09:00)
[2017-09-18] MEDS: PRAMOXINE/HC 10 GM RECT FOAM PR ×3 (09:00→21:00)
[2017-09-18] MEDS: CHOLECALCIFEROL 1,000 UNIT TAB PO (09:00)
[2017-09-18] MEDS: POTASSIUM CHLORIDE (SR) 10 MEQ TAB PO (09:00)
[2017-09-18] MEDS: TIOTROPIUM 18 MCG CAPSULE INHA DEV INH (09:00)
[2017-09-18] MEDS: FUROSEMIDE 20 MG TAB PO (09:00)
[2017-09-18] MEDS: SALMETEROL/FLUTICASONE 250/50 INHA INH ×2 (09:00→21:00)
[2017-09-18] MEDS: FERROUS SULFATE (EC) 325 MG TAB PO ×6 (09:00→22:47)
[2017-09-18] MEDS: SERTRALINE 100 MG TAB PO (09:00)
[2017-09-18] MEDS: CEFEPIME 1GM/50 ML (PMX) 50 ML IVPB ×2 (09:13→22:48)
[2017-09-18] MEDS: NICOTINE (21 MG/24 HR) PATCH TRANSDERM (09:13)
[2017-09-18] MEDS ORDERED: LIDOCAINE 1%/EPI 30 ML INJ (11:27)
[2017-09-18] MEDS ORDERED: CEFAZOLIN 1 GM/50 ML (PMX) 50 ML IVPB (11:27)
[2017-09-18] MEDS ORDERED: HEPARIN 1000 UNITS/ML 10 ML INJ (11:27)
[2017-09-18] MEDS ORDERED: SOD CHLORIDE 0.9% 500 ML (11:28)
[2017-09-18] MEDS ORDERED: MIDAZOLAM 1 MG/ML 2 ML INJ (11:46)
[2017-09-18] MEDS ORDERED: LIDOCAINE 2% (SDV) 5 ML INJ (11:47)
[2017-09-18] MEDS ORDERED: PROPOFOL 20 ML (11:47)
[2017-09-18] MEDS ORDERED: FENTAnyl 50 MCG/ML VIAL (11:47)
[2017-09-18] MEDS ORDERED: FENTAnyl 50 MCG/ML VIAL IV (13:30)
[2017-09-18] MEDS ORDERED: ONDANSETRON 4 MG INJ IV (13:30)
[2017-09-18] MEDS: HYDROCODONE/APAP (5/325) TAB PO (17:28)
[2017-09-18] MEDS: ATORVASTATIN 40 MG TAB PO (22:47)
[2017-09-18] MEDS: ALPRAZOLAM 0.5 MG TAB PO (22:48)
[2017-09-19] MEDS: PANTOPRAZOLE (EC) 40 MG TAB PO (06:32)
[2017-09-19] MEDS: LEVOTHYROXINE 100 MCG TAB PO (06:33)
[2017-09-19] MEDS: SERTRALINE 100 MG TAB PO (08:42)
[2017-09-19] MEDS: NICOTINE (21 MG/24 HR) PATCH TRANSDERM (08:42)
[2017-09-19] MEDS: FERROUS SULFATE (EC) 325 MG TAB PO (08:43)
[2017-09-19] MEDS: FUROSEMIDE 20 MG TAB PO (08:43)
[2017-09-19] MEDS: ISOSORBIDE DINITRATE 20 MG TAB PO (08:43)
[2017-09-19] MEDS: CHOLECALCIFEROL 1,000 UNIT TAB PO (08:43)
[2017-09-19] MEDS: POTASSIUM CHLORIDE (SR) 10 MEQ TAB PO (08:43)
[2017-09-19] MEDS: DONEPEZIL 5 MG TAB PO (08:43)
[2017-09-19] MEDS: ENALAPRIL 20 MG TAB PO (08:44)
[2017-09-19] MEDS: TIOTROPIUM 18 MCG CAPSULE INHA DEV INH (08:45)
[2017-09-19] MEDS: AMLODIPINE 5 MG TAB GTB (08:45)
[2017-09-19] MEDS: SALMETEROL/FLUTICASONE 250/50 INHA INH (08:45)
[2017-09-19] MEDS: CEFEPIME 1GM/50 ML (PMX) 50 ML IVPB (08:45)
[2017-09-19] MEDS: PRAMOXINE/HC 10 GM RECT FOAM PR (08:46)
== END 2017-09-19 12:15 | disposition home health service (06) | DRG 329 ==
LOC: E/R 08:45 → PP2 10:36
PROC: 0DTL4ZZ Resection of Transverse Colon, Percutaneous Endoscopic Approach (ICD-10-PCS; principal; 2017-09-06 17:00)
PROC: 0DUE4KZ Supplement Large Intestine with Nonautologous Tissue Substitute, Percutaneous Endoscopic Approach (ICD-10-PCS; 2017-09-06 17:00)
PROC: 0DBK8ZX Excision of Ascending Colon, Via Natural or Artificial Opening Endoscopic, Diagnostic (ICD-10-PCS; 2017-09-06 17:00)
PROC: 0DBL8ZX Excision of Transverse Colon, Via Natural or Artificial Opening Endoscopic, Diagnostic (ICD-10-PCS; 2017-09-06 17:00)
PROC: 0DBH8ZX Excision of Cecum, Via Natural or Artificial Opening Endoscopic, Diagnostic (ICD-10-PCS; 2017-09-06 17:00)
PROC: 30233N1 Transfusion of Nonautologous Red Blood Cells into Peripheral Vein, Percutaneous Approach (ICD-10-PCS; 2017-09-06 17:00)
PROC: 0JH60WZ Insertion of Totally Implantable Vascular Access Device into Chest Subcutaneous Tissue and Fascia, Open Approach (ICD-10-PCS; 2017-09-06 17:00)
PROC: 05HM33Z Insertion of Infusion Device into Right Internal Jugular Vein, Percutaneous Approach (ICD-10-PCS; 2017-09-06 17:00)
PROC: B513YZA Fluoroscopy of Right Jugular Veins using Other Contrast, Guidance (ICD-10-PCS; 2017-09-06 17:00)
DX: C18.4 Malignant neoplasm of transverse colon (principal); J18.9 Pneumonia, unspecified organism; K92.1 Melena; D62 Acute posthemorrhagic anemia; I50.32 Chronic diastolic (congestive) heart failure; J44.1 Chronic obstructive pulmonary disease with (acute) exacerbation; C77.2 Secondary and unspecified malignant neoplasm of intra-abdominal lymph nodes; C79.89 Secondary malignant neoplasm of other specified sites; D50.0 Iron deficiency anemia secondary to blood loss (chronic); E03.9 Hypothyroidism, unspecified; E78.5 Hyperlipidemia, unspecified; F17.200 Nicotine dependence, unspecified, uncomplicated; I11.0 Hypertensive heart disease with heart failure; I25.10 Atherosclerotic heart disease of native coronary artery without angina pectoris; K21.9 Gastro-esophageal reflux disease without esophagitis; K63.5 Polyp of colon; Q27.33 Arteriovenous malformation of digestive system vessel; Z86.010 Personal history of colon polyps; Z85.51 Personal history of malignant neoplasm of bladder; Z80.0 Family history of malignant neoplasm of digestive organs
CPT/HCPCS: 36415; 36430; 36561; 71045; 74178; 76942; 80048; 80053; 81001; 82728; 83036; 83540; 83735; 84100; 84484; 84703; 85014; 85018; 85025; 85610; 85730; 86850; 86900; 86901; 86920; 88305; 88309; 93005; 93306; 94640; 94664; 96374; 97162; 97167; 99285-25; G0378

== ENCOUNTER 2018-01-13 22:59 | Emergency (ER) | payer SELFPAY, OTHER, MEDICARE | END 2018-01-13 23:46 | disposition left against medical advice (07) | LOC: E/R 23:46 | DX: Z53.21 Procedure and treatment not carried out due to patient leaving prior to being seen by health care provider (principal) | CPT/HCPCS: 93005 ==

== ENCOUNTER → 2018-01-14 | Outpatient (CLI) | payer MEDICARE, OTHER | END | disposition home or self-care (01) | LOC: U/S 16:30 | DX: C18.9 Malignant neoplasm of colon, unspecified (principal) | CPT/HCPCS: 76830; 76856 ==

== ENCOUNTER 2018-07-05 12:53 | Emergency (ER) | payer MEDICARE, OTHER ==
[2018-07-05 13:30] LABS: ADD MAN DIFF? NO
[2018-07-05 13:36] LABS: WHITE BLOOD COUNT 11.1 10^3/ul (4.8-10.8)
[2018-07-05 13:36] LABS: BASOPHILS % 0.4 % (0.0-2.0); EOSINOPHILS # 0.3 10^3/ul (0.0-0.5); EOSINOPHILS % 2.3 % (0.0-7.0); HEMATOCRIT 46.3 % (37.0-47.0); HEMOGLOBIN 14.7 g/dl (12.0-16.0); MEAN CORPUSCULAR HEMOGLOBIN 29.3 pg (29.0-33.0); MEAN CORPUSCULAR HGB CONC 31.7 g/dl (32.0-37.0); MEAN CORPUSCULAR VOLUME 92.4 fl (82.0-101.0); MEAN PLATELET VOLUME 8.7 fl (7.4-10.4); MONOCYTE # 0.6 10^3/ul (0.3-0.9); MONOCYTES % 5.7 % (0.0-11.0); NEUTROPHIL # 7.1 10^3/ul (1.6-7.5); NEUTROPHILS % 64.2 % (39.0-77.0); PLATELET COUNT 273 10^3/UL (140-415); RED BLOOD COUNT 5.01 10^6/ul (4.20-5.40); RED CELL DISTRIBUTION WIDTH 15.5 % (11.5-14.5)
[2018-07-05] MEDS: IPRATROPIUM (NEB) 0.5 MG/2.5 ML AMP INH (13:51)
[2018-07-05] MEDS: ALBUTEROL 0.5% (NEB) 2.5 MG/0.5 ML AMP INH (13:52)
[2018-07-05] MEDS: MAGNESIUM SULFATE 2 GM/50 ML 50 ML IVPB (13:54)
[2018-07-05] MEDS: DEXAMETHASONE 10 MG/ML 1 ML INJ IV (13:54)
[2018-07-05 13:56] LABS: ANION GAP 7 (5-13); BLOOD UREA NITROGEN 16 mg/dl (7-20); CALCIUM 9.5 mg/dl (8.4-10.2); CARBON DIOXIDE 29 mmol/L (21-31); CHLORIDE 104 mmol/L (97-110); CREATININE 0.75 mg/dl (0.44-1.00); Estimated GFR > 60 mL/min (>60); GLUCOSE 97 mg/dl (70-220); SODIUM 140 mmol/L (135-144)
[2018-07-05 14:08] LABS: TROPONIN-I < 0.012 ng/ml (0.000-0.120)
== END 2018-07-05 15:53 | disposition home or self-care (01) ==
LOC: E/R 12:53
DX: J44.1 Chronic obstructive pulmonary disease with (acute) exacerbation (principal); I10 Essential (primary) hypertension; C18.9 Malignant neoplasm of colon, unspecified; Z87.891 Personal history of nicotine dependence
CPT/HCPCS: 71045; 80048; 84484; 85025; 87400; 93005; 94644; 96374; 96375; 99285-25